=== PATIENT | female | born 1985 | race Caucasian/White ===

== ENCOUNTER 2020-03-27 10:28 | Emergency (ER) | payer OTHER ==
[2020-03-27 10:48] VITALS: BP 139/82; PULSE 98
--- NOTE | 2020-03-27 11:16 | EDM.PDOC ---
ED HPI GENERAL MEDICAL PROBLEM - General Chief Complaint: General Stated Complaint: right foot swollen Time Seen by Provider: 03/27/20 10:50 Source of Information: Reports: Patient History Limitations: Reports: No Limitations - History of Present Illness INITIAL COMMENTS - FREE TEXT/NARRATIVE: Toña is a 35 year old female who presents to ER with complaints of right foot pain. States she was sitting yesterday and when she got up to walk, noted that her foot had fallen asleep. Questions if she stepped wrong on the side of her foot and heard a popping sensation. Noted today that her foot was very swollen and bruised and has more pain with weight bearing. Is 37 weeks , no complications. Believes her foot just fell asleep from the way she was sitting as she has not had any issues with back pain, leg weakness or numbness or tingling. Onset: Gradual Duration: Hour(s):, Getting Worse Location: Reports: Lower Extremity, Right Quality: Reports: Throbbing Severity: Moderate Improves with: Reports: Rest Worsens with: Reports: Movement Associated Symptoms: Reports: No Other Symptoms Treatments TOOL PUSHER: Reports: Acetaminophen, Cold Therapy, Other (see below) Other Treatments TOOL PUSHER: elevated R) foot Right Foot Pain Score (Numeric/FACES): 8 - Related Data Allergies Allergy/AdvReac Type Severity Reaction Status Date / Time No Known Allergies Allergy Verified 03/27/20 10:52 Home Meds: Home Meds Acetaminophen [Tylenol Extra Strength] 500 mg PO ASDIRECTED PRN 03/27/20 [History] Levothyroxine 212.5 mcg PO DAILY 03/27/20 [History] Omeprazole 20 mg PO DAILY 03/27/20 [History] 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: Musculoskeletal History: Reports: Fracture Other Musculoskeletal History: R) foot pain/swelling Neurological History: Reports: Concussion, Migraines Endocrine/Metabolic History: Reports: Hypothyroidism - Past Surgical History HEENT Surgical History: Reports: Tonsillectomy GI Surgical History: Reports: Appendectomy Endocrine Surgical History: Reports: Thyroidectomy Social & Family History - Family History Family Medical History: No Pertinent Family History - Tobacco Use Tobacco Use Status *Q: Current Every Day Tobacco User Years of Tobacco use: 15 Packs/Tins Daily: 0.4 Tobacco Use Comment: patient states she smokes 2 cigs/day - Caffeine Use Caffeine Use: Reports: Coffee - Recreational Drug Use Recreational Drug Use: No - Living Situation & Occupation Living situation: Reports: Single, with Significant Other Occupation: Employed ED ROS GENERAL - Review of Systems Review Of Systems: See Below Musculoskeletal: Reports: Foot Pain Skin: Reports: Bruising, Other (swelling to right foot) ED EXAM, GENERAL - Physical Exam Exam: See Below Exam Limited By: No Limitations General Appearance: Alert, WD/WN, No Apparent Distress Extremities: Other (patient does have considerable bruising and swelling of right mid foot. Very tender. Pain with weight bearing) Course - Vital Signs Last Recorded V/S: Last Vital Signs Temp 98.8 F 03/27/20 10:28 Pulse 98 03/27/20 10:28 Resp 18 03/27/20 10:28 BP 139/82 03/27/20 10:28 Pulse Ox 100 03/27/20 10:28 - Orders/Labs/Meds Orders: Active Orders 24 hr Category Date Time Status Foot Comp Min 3V Lt [CR] Stat Exams 03/27/20 10:39 Ordered - Re-Assessments/Exams Free Text/Narrative Re-Assessment/Exam: 03/27/20 xrays appear normal, may have a questionable avulsion injury to the 5th metatarsal. Patient aware of concern. Foot wrapped with yuan bandage. Will call her later today with radiology report and if concern for fracture, will have her return for a cam boot. Departure - Departure Time of Disposition: 11:15 Disposition: Home, Self-Care 01 Condition: Good Clinical Impression: Sprain of right foot Qualifiers: Encounter type: initial encounter Qualified Code(s): S93.601A - Unspecified sprain of right foot, initial encounter - Discharge Information *PRESCRIPTION DRUG MONITORING PROGRAM REVIEWED*: No *COPY OF PRESCRIPTION DRUG MONITORING REPORT IN PATIENT YESENIA: No Referrals: Richar Camarena PA-C [Primary Care Provider] - Forms: ED Department Discharge Additional Instructions: 1. Rest 2. Elevate foot 3. Keep yuan bandage on for compression 4. Ice frequently today 5. Tylenol for discomfort 6. Will call you with radiology report once received. Sepsis Event Note (ED) - Evaluation Sepsis Screening Result: No Definite Risk - Focused Exam Vital Signs: Vital Signs Temp Pulse Resp BP Pulse Ox 03/27/20 10:28 98.8 F 98 18 139/82 100 - My Orders Last 24 Hours: My Active Orders 03/27/20 10:39 Foot Comp Min 3V Lt [CR] Stat - Assessment/Plan Last 24 Hours: My Active Orders 03/27/20 10:39 Foot Comp Min 3V Lt [CR] Stat
== END 2020-03-27 11:20 | disposition home or self-care (01) ==
LOC: CC.ED 10:28
DX: O9A.213 Injury, poisoning and certain other consequences of external causes complicating pregnancy, third trimester (principal); S93.601A Unspecified sprain of right foot, initial encounter; O99.283 Endocrine, nutritional and metabolic diseases complicating pregnancy, third trimester; E03.9 Hypothyroidism, unspecified; O99.333 Smoking (tobacco) complicating pregnancy, third trimester; F17.210 Nicotine dependence, cigarettes, uncomplicated; Z79.899 Other long term (current) drug therapy; Z3A.37 37 weeks gestation of pregnancy; X58.XXXA Exposure to other specified factors, initial encounter
CPT/HCPCS: 73630-LT; 99283-25